=== PATIENT | female | born 1995 | race Caucasian/White ===

== ENCOUNTER 2021-03-20 15:30 | Emergency (ER) | payer BC, SELFPAY ==
[2021-03-20 15:59] VITALS: BP 143/86; PULSE 101; RESP 16; TEMP 36.4; O2SAT 99
--- NOTE | 2021-03-20 16:15 | DI.RAD_ITS ---
Exam(s) XR KNEE RT 3V AP,LAT,ARNOLDO EXAM: XR KNEE RT 3V AP,LAT,ARNOLDO CLINICAL HISTORY: right knee pain. TECHNIQUE: 2D digital imaging was performed. COMPARISON: No exams were available for comparison FINDINGS: BONES: No acute fracture is present. No bony destructive lesion is seen. JOINTS: The knee is normally aligned. No joint effusion is seen. SOFT TISSUE: Normal. IMPRESSION: Unremarkable radiographs of the right knee. DATA REPOSITORY: RADIATION DOSE DELIVERED:
[2021-03-20] MEDS: Ibuprofen 600 MG TAB PO (16:33)
--- NOTE | 2021-03-20 18:14 | DI.VRAD_ITS ---
PROCEDURE INFORMATION: Exam: XR Right Knee Exam date and time: 03/20/2021 4:22 PM Age: 25 years old Clinical indication: Other: Right knee pain after fall TECHNIQUE: Imaging protocol: XR Right knee. Views: 3 views. Total images: 3 COMPARISON: No relevant prior studies available. FINDINGS: Bones/joints: No acute fracture or malalignment. No joint effusion. Soft tissues: Normal. IMPRESSION: No acute fracture or malalignment. Dictated and Authenticated by: Haile Edmonds MD. Ordering:FENG Doll MD
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
== END 2021-03-20 17:41 | disposition home or self-care (01) ==
PROVIDERS: Emergency Provider Physician Assistant
DX: S87.01XA Crushing injury of right knee, initial encounter (principal); V23.0XXA Motorcycle driver injured in collision with car, pick-up truck or van in nontraffic accident, initial encounter
CPT/HCPCS: 29505; 73562; 81025; 99283; 99284